=== PATIENT | male | born 1940 | race Caucasian/White ===

== ENCOUNTER 2020-11-23 12:46 | Emergency (ER) | payer MEDICARE, BC ==
[~2020-11-23] VITALS: Ht 167.6 cm; Wt 79.4 kg
--- NOTE | 2020-11-23 13:37 | NUR ---
Patient discharged to home in stable condition with slow steady gait using his own 2 canes. Written and verbal after care instructions given to patient. Patient verbalized understanding & compliance of instructions. Stressed follow up with his primary doctor or return to ER for worsening s/s.
--- NOTE | 2020-11-23 13:40 | NUR ---
Patient is now waiting for his ride.
== END 2020-11-23 13:45 | disposition home or self-care (01) ==
LOC: ER 12:48
DX: S51.012A Laceration without foreign body of left elbow, initial encounter (principal); S41.111A Laceration without foreign body of right upper arm, initial encounter; W01.0XXA Fall on same level from slipping, tripping and stumbling without subsequent striking against object, initial encounter; Y92.89 Other specified places as the place of occurrence of the external cause; G20 Parkinson's disease; R26.81 Unsteadiness on feet
CPT/HCPCS: A4217; A4663

== ENCOUNTER 2020-11-25 11:59 | Emergency (ER) | payer MEDICARE, BC ==
[~2020-11-25] VITALS: Ht 167.6 cm; Wt 79.4 kg
--- NOTE | 2020-11-25 12:33 | NUR ---
PT WAS EVALUATED BY DR CARLTON. PT WAS D/C'd TO HOME. D/C INSTRUCTIONS GIVEN TO THE PT BY DR CARLTON.
[2020-11-25 12:35] VITALS: BP 142/71
== END 2020-11-25 12:36 | disposition home or self-care (01) ==
LOC: ER 11:59
DX: S51.012D Laceration without foreign body of left elbow, subsequent encounter (principal); S61.511D Laceration without foreign body of right wrist, subsequent encounter; X58.XXXD Exposure to other specified factors, subsequent encounter; G20 Parkinson's disease; R26.81 Unsteadiness on feet
CPT/HCPCS: A4663

== ENCOUNTER 2021-09-27 17:43 | Emergency (ER) | payer MEDICARE, BC ==
[~2021-09-27] VITALS: Ht 167.6 cm; Wt 79.4 kg
[2021-09-27] MEDS ORDERED: TDAP DIPH,PERTUSS,TET VAC/PF 0.5 ML DISP.SYRIN IM ONE (18:00)
[2021-09-27] MEDS ORDERED: ACETAMINOPHEN ES 500 MG TABLET PO ONE (18:00)
--- NOTE | 2021-09-27 19:20 | NUR ---
PT WAS EVALUATED BY DR METZ. PT WAS D/C'd TO HOME. D/C INSTRUCTIONS GIVEN TO THE PT BY DR METZ.
[2021-09-27 19:21] VITALS: BP 148/91
== END 2021-09-27 19:26 | disposition home or self-care (01) ==
LOC: ER 17:45
DX: S51.811A Laceration without foreign body of right forearm, initial encounter (principal); S01.511A Laceration without foreign body of lip, initial encounter; V48.4XXA Person boarding or alighting a car injured in noncollision transport accident, initial encounter; Y92.038 Other place in apartment as the place of occurrence of the external cause; G20 Parkinson's disease; R26.81 Unsteadiness on feet
CPT/HCPCS: 70450; A4663

== ENCOUNTER 2021-09-28 21:26 | Emergency (ER) | payer BC, MEDICARE ==
--- NOTE | 2021-09-28 21:30 | NUR ---
Patient states "I don't want to wait. I will just change my dressing at home."
--- NOTE | 2021-09-28 21:35 | NUR ---
PATIENT WAS NOT SEEN BY ERMD OR TRIAGED.
== END 2021-09-28 21:35 | disposition left against medical advice (07) ==
LOC: ER 21:31
DX: Z53.21 Procedure and treatment not carried out due to patient leaving prior to being seen by health care provider (principal)

== ENCOUNTER 2021-11-18 18:23 | Emergency (ER) | payer MEDICARE, BC ==
[~2021-11-18] VITALS: Ht 167.6 cm; Wt 74.8 kg
--- NOTE | 2021-11-18 18:40 | NUR ---
PT DOES NOT REMEMBER HIS HOME MEDICATION NAMES AND DOSAGES.
--- NOTE | 2021-11-18 18:49 | NUR ---
Dr Schreiber at the bedside for MSE.
--- NOTE | 2021-11-18 19:00 | NUR ---
Patient is a/ox4, NAD noted. Denies SOB
--- NOTE | 2021-11-18 19:02 | NUR ---
Patient taken to CT
[2021-11-18 19:06] LABS: HEMATOCRIT 38.6 % (36.7-47.1); MEAN CORPUSCULAR HEMOGLOBIN 31.5 uug (23.8-33.4); MEAN CORPUSCULAR VOLUME 91.3 fL (73.0-96.2); PLATELET COUNT (AUTO) 242 K/uL (152-348)
--- NOTE | 2021-11-18 19:25 | NUR ---
Patient back from CT
[2021-11-18 19:40] LABS: ALANINE AMINOTRANSFERASE 13 U/L (16-63); ALKALINE PHOSPHATASE 92 U/L (50-136); ASPARTATE AMINOTRANSFERASE 28 U/L (15-37); BILIRUBIN,DIRECT 0.2 mg/dL (0.0-0.2); BILIRUBIN,TOTAL 0.6 mg/dL (0.2-1.0); CARBON DIOXIDE 28 mmol/L (21-32); CHLORIDE 103 mmol/L (98-107); CREATININE 1.4 mg/dL (0.6-1.3); GLUCOSE 103 mg/dL (74-106); POTASSIUM 4.5 mmol/L (3.5-5.1); TOTAL PROTEIN, SERUM 7.5 g/dL (6.4-8.2); UREA NITROGEN, BLOOD 35 mg/dL (7-18)
[2021-11-18] MEDS ORDERED: TDAP DIPH,PERTUSS,TET VAC/PF 0.5 ML DISP.SYRIN IM ONE ×2 (20:28→20:30)
[2021-11-18] MEDS ORDERED: HYDROCODONE/APAP 5-325MG TABLET ONE (20:28)
[2021-11-18] MEDS ORDERED: HYDROCODONE/APAP 5-325MG TABLET PO ONE (20:30)
--- NOTE | 2021-11-18 21:34 | NUR ---
Patient discharged to home in stable condition. Written and verbal after care instructions given. Patient verbalizes understanding of instructions. Stressed follow up or return to ER for worsening s/s. Patient is a/ox4, NAD noted.
[2021-11-18 21:35] VITALS: BP 135/89
== END 2021-11-18 21:35 | disposition home or self-care (01) ==
LOC: ER 18:23
DX: S22.41XA Multiple fractures of ribs, right side, initial encounter for closed fracture (principal); S51.811A Laceration without foreign body of right forearm, initial encounter; W01.0XXA Fall on same level from slipping, tripping and stumbling without subsequent striking against object, initial encounter; Y93.E1 Activity, personal bathing and showering; Y92.031 Bathroom in apartment as the place of occurrence of the external cause; G20 Parkinson's disease; G89.29 Other chronic pain; M54.9 Dorsalgia, unspecified; R03.0 Elevated blood-pressure reading, without diagnosis of hypertension; Z20.822 Contact with and (suspected) exposure to COVID-19
CPT/HCPCS: 36415; 70450; 71101; 85025; 90715; 93005; A4663